=== PATIENT | male | born 1995 | race Asian ===

== ENCOUNTER 2020-05-16 19:18 | Emergency (ER) | payer MEDICAID ==
[~2020-05-16] VITALS: Ht 170.2 cm; Wt 58.1 kg
[2020-05-16 19:35] VITALS: BP 122/88
--- NOTE | 2020-05-16 19:36 | NUR ---
Nurse Note: Pt arrives c/o sore throat and itchiness on bilateral hands for 2 days after drinking a pistachio drink. Pt stated he has a peanut allergy. Pt stated he went to an urgent care and got prescriptions; pt stated the medications are helping but still has slight s/s. 98%O2 on RA. No diffiuclty breathing; able to speak in complete sentences. Pt attached to cardiac rehab nurse.
[2020-05-16] MEDS ORDERED: EPIPEN 2-P0.3 MG/0.3 IM (19:41)
[2020-05-16] MEDS ORDERED: BENADRYL ALLERG25 M1 PO (19:41)
[2020-05-16] MEDS ORDERED: Fluconazole 100mg tab ORAL ONE (19:45)
[2020-05-16] MEDS ORDERED: DiphenhydrAMINE 25mg/10ml Elixir ORAL ONE (19:45)
[2020-05-16 20:00] VITALS: BP 120/78
--- NOTE | 2020-05-16 20:00 | NUR ---
ED Nurse Note: Pt cleared by health care Provider for discharge. DC instructions/prescription was given and explained to pt and verbalized understanding of teachings. Instructed pt to follow up with PCP within 3-7 days. All medical deviecs such as ID band removed. Pt is AAO x4, ambulatory and left with all personal belongings.
--- NOTE | 2020-05-16 20:17 | Emergency Room Report ---
History of Present Illness General Chief Complaint: Allergic Reaction Source: Patient Present Illness HPI Patient is a 25-year-old male presents for increased skin rash and possible food allergy. Patient had recent urgent care visit for similar symptoms. Previously had a history of allergic reactions to peanuts. Had some pistachios and subsequently began having increased hives generalized throughout his body. He reports having some improvement in this. Denies any fever. Reports having onset of symptoms approximately 2 days ago. Denies feeling dizzy or lightheaded. He had taken Benadryl previously and had recently been given an injection of steroids and started on a Medrol Dosepak. Allergies: Coded Allergies: PEANUT (Verified Allergy, Unknown, 05/16/20) COVID-19 Screening Contact w/high risk pt: No Experienced COVID-19 symptoms?: No COVID-19 Testing performed REGIONAL ENVIRONMENTAL MANAGER: No Patient History Past Medical History: see triage record Reviewed Nursing Documentation: PMH: Agreed; PSxH: Agreed Nursing Documentation-PMH Past Medical History: No Stated History Review of Systems All Other Systems: negative except mentioned in HPI Physical Exam Vital Signs Date Time Temp Pulse Resp B/P (MAP) Pulse Ox O2 Delivery O2 Flow Rate FiO2 05/16/20 19:22 98.4 105 18 122/88 (99) 95 Room Air General Appearance: well appearing, no apparent distress, alert, GCS 15, non- toxic Head: normocephalic, atraumatic ENT: hearing grossly normal, normal voice, pharyngeal erythema Neck: full range of motion, supple Respiratory: lungs clear, normal breath sounds, no respiratory distress, speaking full sentences Cardiovascular #1: normal inspection, no edema Gastrointestinal: normal inspection, soft Musculoskeletal: no calf tenderness Neurologic: alert, motor strength/tone normal, hearing stenographer III-XII nml as tested, oriented x3, normal gait Psychiatric: mood/affect normal Skin: no rash, other - Slight increased skin erythema without any desquamation, bilateral upper extremity linear abrasions Medical Decision Making Diagnostic Impression: Primary Impression: Allergic reaction Additional Impression: Pharyngitis ER Course Patient presented for possible allergic reaction. Differential diagnosis include was not limited to allergic reaction, pharyngitis, among others. Patient has a benign exam and does not appear to require any imaging or laboratory testing at this time. Patient was given oral Diflucan due to what appears to be some mild yeast likely related to recent use of steroids. Patient was not in any acute distress. Patient was given prescription for oral medications for allergy. He was given prescription for EpiPen. Was advised return precautions. He was advised to follow-up with primary care physician for recheck. This medical record is generated with [employer] tobacco warehouse agent software. There may be some tobacco warehouse agent discrepancies related to use of this software Last Vital Signs Date Time Temp Pulse Resp B/P (MAP) Pulse Ox O2 Delivery O2 Flow Rate FiO2 05/16/20 20:00 98.4 88 18 120/78 98 Room Air Status: improved Disposition: HOME, SELF-CARE Condition: Stable Scripts Diphenhydramine Hcl (BENADRYL ALLERGY) 25 Mg Tablet 25 MG PO EVERY 6 HOURS, #30 TAB Prov: Bert Nicole MD 05/16/20 Epinephrine (Epipen 2-Jake) 0.3 Mg/0.3 Ml Auto.injct 0.3 MG IM EVERY 8 HOURS, #1 EA Prov: Bert Nicole MD 05/16/20 Referrals: NON PHYSICIAN (PCP) Patient Instructions: Food Allergy, Allergies Additional Instructions: Follow up with your doctor for recheck. Return if worse. Bert Nicole MD May 16, 2020 20:16
== END 2020-05-16 20:00 | disposition home or self-care (01) ==
LOC: EMR 19:49
DX: T78.40XA Allergy, unspecified, initial encounter (principal); X58.XXXA Exposure to other specified factors, initial encounter; J02.9 Acute pharyngitis, unspecified; Z91.010 Allergy to peanuts
CPT/HCPCS: 99282